=== PATIENT | female | born 1995 | race Two or more races ===

== ENCOUNTER 2018-06-28 20:20 | Emergency (ER) | payer SELFPAY ==
[2018-06-28 20:52] VITALS: BMI 43.8
[2018-06-28] MEDS ORDERED: BACTROBAN NASAL1 GM NASAL (21:47)
[2018-06-28] MEDS ORDERED: VIBRAMYCIN 100100 MG PO (21:47)
[2018-06-28] MEDS ORDERED: TORADOL10 MG PO (21:48)
[2018-06-28 23:16] VITALS: BP 155/64
[2018-11-20 09:36] VITALS: BMI 45.6
== END 2018-06-29 00:16 | disposition home or self-care (01) ==
LOC: D.ER 20:20
DX: L02.31 Cutaneous abscess of buttock (principal)

== ENCOUNTER 2018-11-20 08:05 | Day surgery (SDC) | payer MEDICAID ==
[2018-11-19 12:31] LABS: HEMATOCRIT 43.1 % (36.0-48.0); HEMOGLOBIN 15.4 g/dL (12-16); MCH 32.8 pg (26.0-34.0); MCHC 35.7 g/dL (31.0-37.0); MCV 91.7 fL (80.0-100.0); MEAN PLATELET VOLUME 10.4 fL (7.4-10.4); RBC 4.7 10x6/uL (4.00-5.40); WBC 10.1 10x3/uL (4.8-10.8)
[~2018-11-20] VITALS: Ht 162.6 cm; Wt 120.2 kg
--- NOTE | ~2018-11-20 | OP ---
PATIENT NAME: REBECCA DAVIS MEDICAL RECORD: [id number] :89 LOCATION:D.OPS ADMISSION DATE: SURGEON: RADHA CRISOSTOMO DO DATE OF OPERATION: 11/20/2018 PREOPERATIVE DIAGNOSIS: Retained intrauterine device. POSTOPERATIVE DIAGNOSIS: Retained intrauterine device. PRIMARY SURGEON: Radha Crisostomo DO ANESTHESIA: Homer Ruelas CRNA PROCEDURE: Operative hysteroscopy, removal of IUD. FINDINGS: Normal appearing external genitalia, normal appearing vaginal vault, normal appearing cervix. Uterus sounded to 8 cm. Normal appearing uterus with proliferative endometrium. IUD noted at fundus. Normal appearing bilateral fallopian tube ostia. SPECIMENS: IUD. ESTIMATED BLOOD LOSS: 2 cc. IV FLUIDS: 300 cc. COMPLICATIONS: None. CONDITION: Stable. PROCEDURE IN DETAIL: The risks, benefits, alternatives, and indications of the procedure were discussed with the patient and she voiced understanding of the procedure and signed the consent. She was taken to the OR where general anesthesia was administered and found to be adequate. She was placed in the dorsal lithotomy position. She was prepped and draped in the normal sterile fashion. A speculum was placed in the posterior aspect of the vagina and a single tooth tenaculum was used to grasp the anterior lip of the cervix. The uterus was sounded to 8 cm. The cervix was dilated to accommodate hysteroscope. Hysteroscope was then inserted into the uterus and IUD was noted at the fundus. Hysteroscopic grasper used to grasp the IUD strings. The hysteroscope and IUD were removed from the uterus, and the IUD was sent to pathology. The tenaculum was removed and the tenaculum site was noted to be hemostatic. All instruments were removed from the vagina. All needle, lap, sponge, and instrument counts were correct times 2. The patient tolerated the procedure well. She was taken to recovery room in stable condition. TRANSINT:[id number] Voice Confirmation ID: [id number] DOCUMENT ID: [id number] OPERATIVE REPORT [id number] REBECCA DAVIS RADHA CRISOSTOMO DO CC: [id number] DICTATION DATE: 11/20/18 1138 AVIATION ORDNANCE OFFICER: 11/20/18 1433 [facility] [address] [place] [address]
[~2018-11-20 08:05] MED LIST: BACTROBAN NASAL1 GM NASAL; TORADOL10 MG PO; VIBRAMYCIN 100100 MG PO
[2018-11-20 09:36] VITALS: BP 97/67; Ht 162.6 cm; Wt 120.2 kg
[2018-11-20 10:16] LABS: HCG URINE NEGATIVE (NEGATIVE)
--- NOTE | 2018-11-20 12:51 | NUR ---
1240-PT PULLED IV OUT WHEN REPOSITIONING WITH CATH INTACT. COVERED SITE WITH BANDAID. DISPOSED NEEDLE INTO SHARPS CONTAINER. NO DISTRESS, DENIES COMPLAINTS.
--- NOTE | 2018-11-20 12:53 | NUR ---
1245-FULL LIQUID TRAY TO ROOM.
== END 2018-11-20 13:52 | disposition home or self-care (01) ==
LOC: D.OPS 08:05 → D.PAN 08:45 → D.OPS 09:15 → D.PAN 10:00 → D.OPS 10:15
PROVIDERS: ATTEND Student in an Organized Health Care Education/Training Program
DX: Z30.432 Encounter for removal of intrauterine contraceptive device (principal)